=== PATIENT | female | born 1990 | race African-American/Black ===

== ENCOUNTER 2017-11-20 14:53 | Emergency (ER) | payer OTHER, BC ==
[~2017-11-20] VITALS: Ht 157.5 cm; Wt 74.0 kg
[~2017-11-20 14:53] MED LIST: FIORTAB4 PO; Z.0.NO CURRENT MEDS
[2017-11-20 15:05] VITALS: BP 153/84; PULSE 73; RESP 16; TEMP 98.9; O2SAT 99
--- NOTE | 2017-11-20 16:13 | PD ---
HPI Chief Complaint: Manager Nuclear Problem/Complaint Time Seen by Provider: 16:05 Travel History International Travel<30 days: No Contact w/Intl Traveler<30days: No Traveled to known affect area: No History of Present Illness HPI Patient presents with concerns of heavy menstrual bleeding for 2 days. Reports a approximately one month ago. She is sexually active. Denies any vaginal pain. She is not on control. She is not breast-feeding. PFSH Past Medical History Medical History: Denies Significant Hx Diminished Hearing: No Influenza Vaccination: No ?: Not : 1 Para: 1 Miscarriage: 0 : 0 Past Surgical History Section: Yes Other Surgery: Yes (BREAST REDUCTION) Social History Alcohol Use: Yes (ON OCCASION) Tobacco Use: No Substance Use: No Allergies-Medications (Allergen,Severity, Reaction): Coded Allergies: No Known Allergies (Verified Adverse Reaction, Unknown, 11/20/17) Reported Meds & Prescriptions Reported Meds & Active Scripts Active Fioricet (Acetaminophen/Butalbital/Caffeine) Tab 1 Tab PO Q6HPRN FOR HEADACHE Reported No Current Meds (Miscellaneous Medication) Misc Review of Systems General / Constitutional: No: Fever Eyes: No: Visual changes HENT: No: Headaches Cardiovascular: No: Chest Pain or Discomfort Respiratory: No: Shortness of Breath Gastrointestinal: No: Abdominal Pain Genitourinary: Positive: Menorrhagia, No: Dysuria Musculoskeletal: No: Pain Skin: No Rash Neurologic: No: Weakness Psychiatric: No: Depression Endocrine: No: Polydipsia Hematologic/Lymphatic: No: Easy Bruising Physical Exam Narrative GENERAL: Well-nourished, well-developed patient. SKIN: Focused skin assessment warm/dry. HEAD: Normocephalic. EYES: No scleral icterus. No injection or drainage. NECK: Supple, trachea midline. No JVD or lymphadenopathy. CARDIOVASCULAR: Regular rate and rhythm without murmurs, gallops, or rubs. RESPIRATORY: Breath sounds equal bilaterally. No accessory muscle use. GASTROINTESTINAL: Abdomen soft, non-tender, nondistended. MUSCULOSKELETAL: No cyanosis, or edema. BACK: Nontender without obvious deformity. No CVA tenderness. Data Data Last Documented VS Vital Signs Date Time Temp Pulse Resp B/P (MAP) Pulse Ox O2 Delivery O2 Flow Rate FiO2 11/20/17 16:31 63 16 125/82 (96) 100 Room Air 11/20/17 15:05 98.9 Orders Orders Complete Blood Count With Diff (11/20/17 16:06) Labs Laboratory Tests Test 11/20/17 16:20 White Blood Count 5.8 TH/MM3 Red Blood Count 4.72 MIL/MM3 Hemoglobin 10.4 GM/DL Hematocrit 32.7 % Mean Corpuscular Volume 69.4 FL Mean Corpuscular Hemoglobin 22.0 PG Mean Corpuscular Hemoglobin Concent 31.7 % Red Cell Distribution Width 15.3 % Platelet Count 256 TH/MM3 Mean Platelet Volume 7.7 FL Neutrophils (%) (Auto) 42.4 % Lymphocytes (%) (Auto) 41.9 % Monocytes (%) (Auto) 11.0 % Eosinophils (%) (Auto) 3.3 % Basophils (%) (Auto) 1.4 % Neutrophils # (Auto) 2.5 TH/MM3 Lymphocytes # (Auto) 2.4 TH/MM3 Monocytes # (Auto) 0.6 TH/MM3 Eosinophils # (Auto) 0.2 TH/MM3 Basophils # (Auto) 0.1 TH/MM3 CBC Comment AUTO DIFF Differential Comment AUTO DIFF CONFIRMED Platelet Estimate NORMAL Platelet Morphology Comment NORMAL Ovalocytes 1+ MDM Medical Decision Making Medical Screen Exam Complete: Yes Emergency Medical Condition: Yes Differential Diagnosis Menorrhagia, uterine fibroids, dysfunctional uterine bleeding Narrative Course Assessment and plan discussed with patient and mother bedside. Anemia noted but not significant. Diagnosis Primary Impression: Dysfunctional uterine bleeding Patient Instructions: General Instructions Additional Instructions: Rest and fluids. Follow-up with [facility] [employer] [facility] [facility]. Encouraged a vitamin. Return to emergency with any onset of new symptoms. Med/Other Pt SpecificInfo: Prescription(s) given Scripts Medroxyprogesterone Acetate (Medroxyprogesterone Acetate) 10 Mg Tab 10 MG PO DAILY for Uterine bleeding, #5 TAB 0 Refills Start day 21 Prov: Johan Coles MD 11/20/17 Disposition: 01 DISCHARGE HOME Condition: Good Johan Coles MD Nov 20, 2017 16:13
[2017-11-20 16:31] VITALS: BP 125/82; PULSE 63; RESP 16; O2SAT 100
[2017-11-20 16:32] LABS: AUTOMATED NEUTROPHIL # 2.5 TH/MM3 (1.8-7.7); BASOPHIL # 0.1 TH/MM3 (0-0.2); BASOPHIL % 1.4 % (0.0-2.0); EOSINOPHIL # 0.2 TH/MM3 (0-0.4); EOSINOPHIL % 3.3 % (0.0-4.0); HEMATOCRIT 32.7 % (35.0-46.0); HEMOGLOBIN 10.4 GM/DL (11.6-15.3); LYMPH % 41.9 % (9.0-44.0); LYMPHOCYTE # 2.4 TH/MM3 (1.0-4.8); MEAN CELL VOLUME 69.4 FL (80.0-100.0); MEAN CORPUSCULAR HGB CONC 31.7 % (32.0-36.0); MEAN PLATELET VOLUME 7.7 FL (7.0-11.0); MONOCYTE # 0.6 TH/MM3 (0-0.9); NEUT % 42.4 % (16.0-70.0); PLATELET COUNT 256 TH/MM3 (150-450); RED BLOOD COUNT 4.72 MIL/MM3 (4.00-5.30); RED CELL DISTRIBUTION WIDTH 15.3 % (11.6-17.2); WHITE BLOOD COUNT 5.8 TH/MM3 (4.0-11.0)
[2017-11-20 17:17] LABS: OVALOCYTES 1+ (NORMAL)
[2017-11-20] MEDS ORDERED: MEDR10TA7 PO (17:50)
[2017-11-20 18:35] VITALS: BP 137/77
== END 2017-11-20 18:48 | disposition home or self-care (01) ==
LOC: PHED 14:53
DX: N93.8 Other specified abnormal uterine and vaginal bleeding (principal); D64.9 Anemia, unspecified; Z79.899 Other long term (current) drug therapy
CPT/HCPCS: 85025; 99283